=== PATIENT | female | born 1955 | race Caucasian/White ===

== ENCOUNTER 2016-11-04 16:08 | Observation (INO) | payer OTHER ==
[~2016-11-04] VITALS: Ht 177.8 cm; Wt 136.0 kg
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
--- NOTE | ~2016-11-04 | BMI ---
[facility] Nutrition Therapy DATE: 11/05/16 Patient: AVE RAYO Physician: NIKOLAY Address: [address] [place] [address] Room/Bed: [address] [place] [address], Zip: [place] [address] Admit Date: 11/04/16 Date of : [birth year] Height: 5 10 Weight: 299 136 HIGH BMI NOTE: Admitting DX: Pt is a 61 y/o female admitted with ANTHROPOMETRICS: Ht:70" Wt:299# BMI:42.9 IBW:150 %IBW:199% DIET: No diet order. RECOMMENDATIONS: Once medically feasible, please initiate PO diet with a heart healthy restricition to promote gradual weight loss towards a healthy BMI (19-25) or +/- 10% of IBW. Respectfully, Lea Higgins, Petrology Teacher Talia Suarez, MS, RD, LD [facility] cc: client file
--- NOTE | ~2016-11-04 | CR72 ---
[facility] A Service of [facility] & [facility] RADIOLOGY TEXT RESULTS PATIENT: AVE RAYO LOCATION: [facility] 54-01 : 56 UNIT #: [id number] AGE: [address]: Leo Terrell MD SEX: F ORDER DR: [id number] [facility] [address] [facility]. [place], [place] [address] [id number] MR#: [id number] Acc #: [id number] NAME: AVE RAYO : 1955 SEX: F STUDY DATE/TIME: 11/04/2016 17:21 UNIT: [facility] ROOM: [facility] STUDY DESCRIPTION: CR Chest Single View Portable Attending Physician: Leo Terrell M.D. Ordering Physician: Emerald Glasgow M.D. Primary Care Physician: Rodrigo Trujillo Jr., M.D. MEDICAL IMAGING REPORT This report is preliminary unless electronic signature is present EXAM Portable chest. HISTORY Chest pain for 2 months. FINDINGS Cardiac size and pulmonary vascularity are normal. No infiltrates or effusions. Minimal left upper thoracic curve. IMPRESSION No acute findings. Dictated by... Jeramie Velásquez M.D. THIS IS AN ELECTRONICALLY VERIFIED REPORT Jeramie Velásquez M.D. at 11/05/2016 11:34 PM DFL/richard TD: 11/05/2016 08:33 JOB #: [id number] MEDICAL IMAGING REPORT Page 1 of 1 COPY
--- NOTE | ~2016-11-04 | EKG ---
PATIENT: AVE RAYO UNIT #: [id number] Ventricular Rate: 74 BPM Atrial Rate: 74 BPM P-R Interval: 140 ms QRS Duration: 82 ms Q-T Interval: 374 ms QTC Calculation(Bezet): 415 ms P [place]: 43 degrees Calculated R [place]: 23 degrees Calculated T [place]: 29 degrees Diagnosis Line: Normal sinus rhythm Diagnosis Line: Normal ECG Diagnosis Line: When compared with ECG of 18-FEB-2010 15:49, Diagnosis Line: No significant change was found Diagnosis Line: Confirmed by JOSE HORAN MD ([id number]) on Diagnosis Line: 11/06/2016 11:31:37 AM INTERPRETING MD: AUNG JUAREZ
--- NOTE | ~2016-11-04 | EKG ---
PATIENT: AVE RAYO UNIT #: [id number] Ventricular Rate: 73 BPM Atrial Rate: 73 BPM P-R Interval: 152 ms QRS Duration: 86 ms Q-T Interval: 400 ms QTC Calculation(Bezet): 440 ms P [place]: 62 degrees Calculated R [place]: 39 degrees Calculated T [place]: 66 degrees Diagnosis Line: Normal sinus rhythm Diagnosis Line: Normal ECG Diagnosis Line: When compared with ECG of 04-NOV-2016 16:27, Diagnosis Line: (unconfirmed) Diagnosis Line: No significant change was found Diagnosis Line: Confirmed by JOSE HORAN MD ([id number]) on Diagnosis Line: 11/06/2016 11:33:01 AM INTERPRETING MD: AUNG JUAREZ
[~2016-11-04 16:08] MED LIST: ALLERGY SHOT SUBQ; BACTROBAN15 GM TOP; CALCIUM 500 +1 EAC2 PO; CO Q10200 MG PO; DHEA25 M1 PO; EFFER-K 10 MEQ10 MEQ PO; FISH OIL 1,2001 CAP PO; FLAXSEED OIL1000 M1 PO; LASIX20 MG PO; LEVAQUIN PO; LOTREL 5/10 MG1 CAP PO; METOPROLOL PO; MICRO-K10 MEQ PO; MULTI-VITAMIN1 TAB PO; NASONEX17 GM; PATANOL5 ML OP; PRAVASTATIN SOD40 MG PO; VIT A PO; VIT B 12 PO; VIT B COMP PO; VIT C PO; VITAL-D RX TABL1 TAB PO; ZITHROMAX PO; [UNRECOGNIZED DRUG - OTHER]
[2016-11-04 17:34] LABS: POC - CKMB <1.0 ng/mL (0.0-7.9); POC - TROPONIN <0.05 ng/mL (<=0.05)
[2016-11-04 18:01] LABS: BASOPHIL% 0.5 % (0-2.5); EOSINOPHIL# 0.2 X10e3 (0-0.7); EOSINOPHIL% 2.6 % (0.0-7.0); HEMATOCRIT 40.7 % (35.0-45.0); HEMOGLOBIN 13.9 gm/dL (12.0-16.0); LYMPHOCYTE% 25.7 % (17.0-45.0); MEAN CELL VOLUME 93.1 FL (83-96); MEAN CORPUSCULAR HEMOGLOBIN 31.8 PG (28-34); MEAN CORPUSCULAR HGB CONC 34.1 g/dL (30-36); MEAN PLATELET VOLUME 8.3 FL (6.5-11.5); MONOCYTE# 0.9 X10e3 (0-1.0); MONOCYTE% 11.3 % (3.0-12.0); NEUTROPHIL# 4.7 X10e3 (1.5-7.1); NEUTROPHIL% 59.9 % (40-75); PLATELET COUNT 252 X10e3 (140-420); RED BLOOD COUNT 4.37 X10e (3.90-5.30); RED CELL DISTRIBUTION WIDTH 13.8 % (11.0-15.5); WHITE BLOOD COUNT 7.9 X10e3 (4.0-10.5)
[2016-11-04 18:02] LABS: DIFF IND NO
[2016-11-04 18:13] LABS: PARTIAL THROMBOPLASTIN TIME 26.3 SECONDS (23.5-31.3); PROTHROMBIN TIME (PATIENT) 10.4 SECONDS (10.0-11.7)
[2016-11-04 18:23] LABS: ALBUMIN SERUM 4.1 g/dL (3.5-5.0); ALKALINE PHOSPHATASE 57 U/L (32-92); ALT (SGPT) 29 U/L (10-40); AST (SGOT) 24 U/L (10-42); BILIRUBIN,TOTAL 0.3 mg/dL (0.2-2.0); BLOOD UREA NITROGEN 16 mg/dL (9-23); CALCIUM SERUM 9.5 mg/dL (8.4-10.2); CARBON DIOXIDE 28 mmol/L (22-31); CHLORIDE 103 mmol/L (100-111); CREATININE SERUM 0.5 mg/dL (0.6-1.4); GLOM FILT RATE Estimated 105.2 mL/min (>60); GLUCOSE FASTING 100 mg/dL (70-110); POTASSIUM 3.9 mmol/L (3.5-5.1); PROTEIN TOTAL SERUM 7.3 g/dL (6.0-8.3); SODIUM 140 mmol/L (135-145)
[2016-11-04 18:25] LABS: BILIRUBIN, DIRECT <0.1 mg/dL (0.0-0.2); BILIRUBIN,INDIRECT 0.2 mg/dL (0.0-0.9)
[2016-11-04 18:33] LABS: POC - CKMB <1.0 ng/mL (0.0-7.9); POC - TROPONIN <0.05 ng/mL (<=0.05)
[2016-11-05] MEDS ORDERED: METOPROLOL TAR25 MG PO (11:13)
[2016-11-05] MEDS ORDERED: CATAPRES0.1 MG PO (11:14)
[2016-11-05 11:44] LABS: CHOLESTEROL 243 mg/dL (0-200); HDL CHOLESTEROL 45 mg/dL (35-95); LDL/HDL RATIO 4 RATIO (0-4); TRIGLYCERIDES 159 mg/dL (10-160)
[2016-11-05 11:46] LABS: LDL CHOLESTEROL 166 mg/dL (-130)
== END 2016-11-05 12:37 | disposition home or self-care (01) ==
LOC: CED 16:08 → CEDOF 18:50 → CED 21:03 → C5B 21:03 → CEDOF 22:09 → C5B 11-05 12:37
PROVIDERS: Emergency Medicine; Internal Medicine Cardiovascular Disease
DX: R00.2 Palpitations (principal); E66.9 Obesity, unspecified; I10 Essential (primary) hypertension; F41.9 Anxiety disorder, unspecified; Z68.36 Body mass index [BMI] 36.0-36.9, adult; Z87.442 Personal history of urinary calculi; Z86.2 Personal history of diseases of the blood and blood-forming organs and certain disorders involving the immune mechanism; Z98.890 Other specified postprocedural states
CPT/HCPCS: 36415; 71010; 80048; 80061; 80076; 82553; 83036; 83880; 84443; 84484; 85025; 85610; 85730; 93005; 99285; G0378